=== PATIENT | female | born 1945 | race Caucasian/White ===

== ENCOUNTER 2020-04-26 22:56 | Inpatient (IN) | payer MEDICARE, BC ==
[~2020-04-26] VITALS: Ht 167.6 cm; Wt 191.0 kg
[~2020-04-26 22:56] MED LIST: APIX5TAB3 PO; ASPI-1265 PO; ATOR40TA PO; CARV25TA56 PO; CEPH500C2 PO; DILT-88 PO; FLEC100T2 PO; LISI-644 PO; MAGN250T11 PO; MULT-1085 PO; OMEG300C2 PO; OSC500T PO; POTA10TA19 PO; POTA99TA21; SYN0.0125T PO
[2020-04-26] MEDS ORDERED: normal saline 1000ML IV soln IVB ONE (23:10)
[2020-04-26 23:33] LABS: PARTIAL THROMBOPLASTIN TIME 39 SECONDS (22-32)
[2020-04-26] MEDS ORDERED: ondansetron/PF 4mg/2ml inj IV ONE (23:35)
[2020-04-26 23:42] LABS: ALANINE AMINOTRANSFERASE 58 U/L (12-78); ALBUMIN 2.7 G/DL (3.4-5.0); ALBUMIN/GLOBULIN RATIO 0.7 (1.1-1.5); ALKALINE PHOSPHATASE 89 IU/L (46-116); ANION GAP 7 (8-16); ASPARTATE AMINO TRANSFERASE 31 U/L (10-37); BILIRUBIN,TOTAL 0.5 MG/DL (0.1-1.0); BLOOD UREA NITROGEN 18 MG/DL (7-18); BUN/CREATININE RATIO 15.8 (6.6-38.0); CALCIUM 8.1 MG/DL (8.5-10.1); CHLORIDE 86 MMOL/L (99-107); CREATININE 1.14 MG/DL (0.40-0.90); GLUCOSE 127 MG/DL (70-104); POTASSIUM 4.5 MMOL/L (3.5-5.1); TOTAL CARBON DIOXIDE 25.7 MMOL/L (24-32); TOTAL PROTEIN 6.4 G/DL (6.4-8.2); eGFR 47 ML/MIN
[2020-04-26 23:44] LABS: BASOPHILS % (AUTO) 0.3 % (0-1); EOSINOPHILS # (AUTO) 0.2 X10'3 (0-0.9); EOSINOPHILS % (AUTO) 1.7 % (0-6); HEMATOCRIT 28.6 % (35.0-45.0); HEMOGLOBIN 9.6 g/dl (12.0-16.0); LYMPHOCYTES # (AUTO) 0.8 X10'3 (1.1-4.8); LYMPHOCYTES % (AUTO) 6.9 % (21-51); MEAN CORPUSCULAR HEMOGLOBIN 30.7 PG (27.0-31.0); MEAN CORPUSCULAR HGB CONC 33.6 g/dL (33.0-36.5); MEAN CORPUSCULAR VOLUME 91.4 FL (78-98); MONOCYTES # (AUTO) 1.3 X10'3 (0-0.9); MONOCYTES % (AUTO) 10.5 % (2-12); NEUTROPHILS # (AUTO) 9.7 X10'3 (1.8-7.7); NEUTROPHILS % (AUTO) 80.6 % (42-75); PLATELET COUNT 319 X10'3 (140-440); RED BLOOD COUNT 3.13 X10'6 (4.20-5.60); RED CELL DISTRIBUTION WIDTH 13.4 % (11.5-14.5); WHITE BLOOD COUNT 12.1 X10'3 (4.5-11.0)
--- NOTE | 2020-04-26 23:45 | NUR ---
Ki from [employer] states pacemaker functioning properly. No events to report.
[2020-04-26 23:46] LABS: SODIUM 119 MMOL/L (135-145)
[2020-04-27] MEDS ORDERED: normal saline 1000ml 1,000 ML IV SCH (00:37)
[2020-04-27] MEDS ORDERED: acetaminophen 325mg tablet PO PRN (00:40)
[2020-04-27] MEDS ORDERED: magnesium hydroxide 30ml (MOM) UD suspension PO PRN (00:40)
[2020-04-27] MEDS ORDERED: mag hydrox/Alum hydrox/simeth 30ml oral suspension PO PRN (00:40)
[2020-04-27] MEDS ORDERED: ondansetron/PF 4mg/2ml inj IV PRN (00:40)
[2020-04-27] MEDS: OMEGA-3/DHA/EPA/FISH OIL 1 EACH CAPSULE.DR PO SCH ×2 (01:00→07:26)
--- NOTE | 2020-04-27 02:05 | NUR ---
Patient in room ED 5. I have received report from Cap RN and had the opportunity to ask questions and assume patient care. Patient being brought to O/N from ER and will go in 4009A.
[2020-04-27 02:15] VITALS: BP 137/77
--- NOTE | 2020-04-27 02:22 | NUR ---
Patient up to O/N at 0211. Patient is A&O and in no apparent distress.
[2020-04-27 02:27] LABS: CLARITY,URINE CLEAR (Clear); COLOR,URINE YELLOW (Yellow); GLUCOSE, URINE NEGATIVE (Neg); KETONES,URINE NEGATIVE (Neg); LEUKOCYTE ESTERASE ,URINE TRACE (Neg); NITRITES, URINE NEGATIVE (Neg); OCCULT BLOOD,URINE TRACE-INTACT (Neg); PROTEIN,URINE NEGATIVE (Neg); UROBILINOGEN,URINE 0.2 E.U/dL (0.2-1.0)
[2020-04-27 02:47] LABS: UA COLLECTION TYPE CLN CATCH MIDSTREAM
[2020-04-27 02:49] LABS: BACTERIA,URINE FEW /HPF (Neg); MUCUS STRANDS FEW /LPF (Neg); RBC,URINE 0-2 /HPF (0-2); SQUAMOUS EPITHELIAL CELL,UR FEW /LPF (FEW); WBC,URINE 0-4 /HPF (0-4)
--- NOTE | 2020-04-27 06:03 | NUR ---
Problems reprioritized. Patient report given, questions answered & plan of care reviewed with Verónica HORAN.
[2020-04-27 06:10] VITALS: BP 120/82
--- NOTE | 2020-04-27 06:20 | NUR ---
Patient in room ORTHO 4009. I have received report from Val HORAN and had the opportunity to ask questions and assume patient care.
[2020-04-27] MEDS: atorvastatin 20mg tablet PO SCH (07:27)
[2020-04-27] MEDS: magnesium oxide 400mg tablet PO SCH (07:27)
[2020-04-27] MEDS: carVEDilol 12.5mg tablet PO SCH ×2 (07:28→20:12)
[2020-04-27] MEDS: diltiazem CD 120mg capsule (once-daily) PO SCH (07:28)
[2020-04-27] MEDS: lisinopril 20mg tablet PO SCH (07:29)
[2020-04-27] MEDS: levoTHYROXINE 125mcg tablet PO SCH (07:29)
[2020-04-27] MEDS: aspirin 81mg tab.chew PO SCH (07:29)
[2020-04-27] MEDS: multivitamins, therapeutics tablet PO SCH (07:29)
[2020-04-27] MEDS ORDERED: apixaban 5mg tablet PO SCH (08:00)
[2020-04-27] MEDS: furosemide 20 MG/2 ML vial IV SCH ×2 (08:03→20:12)
[2020-04-27 08:09] LABS: ALBUMIN 2.6 G/DL (3.4-5.0); ANION GAP 6 (8-16); BLOOD UREA NITROGEN 13 MG/DL (7-18); BUN/CREATININE RATIO 13.5 (6.6-38.0); CHLORIDE 90 MMOL/L (99-107); CREATININE 0.96 MG/DL (0.40-0.90); GLUCOSE 103 MG/DL (70-104); POTASSIUM 4.4 MMOL/L (3.5-5.1); SODIUM 121 MMOL/L (135-145); TOTAL CARBON DIOXIDE 25.1 MMOL/L (24-32); eGFR 57 ML/MIN
[2020-04-27 10:00] VITALS: BP 110/76
[2020-04-27] MEDS: pantoprazole 40 MG vial IV SCH ×2 (11:56→20:12)
--- NOTE | 2020-04-27 13:21 | NUR ---
Student documentation: I have reviewed all interventions, assessments performed and documented by Elmo Student Nurse.
[2020-04-27 18:00] VITALS: BP 134/84
--- NOTE | 2020-04-27 18:11 | NUR ---
Patient in room ORTHO 4009. I have received report from Verónica HORAN and had the opportunity to ask questions and assume patient care.
--- NOTE | 2020-04-27 18:55 | NUR ---
Patient report given to Vicky HORAN
[2020-04-27 20:12] VITALS: BP 132/96
[2020-04-27 21:16] LABS: ALANINE AMINOTRANSFERASE 49 U/L (12-78); ALBUMIN 2.7 G/DL (3.4-5.0); ALBUMIN/GLOBULIN RATIO 0.7 (1.1-1.5); ALKALINE PHOSPHATASE 91 IU/L (46-116); ANION GAP 10 (8-16); ASPARTATE AMINO TRANSFERASE 36 U/L (10-37); BILIRUBIN,TOTAL 0.5 MG/DL (0.1-1.0); BLOOD UREA NITROGEN 17 MG/DL (7-18); BUN/CREATININE RATIO 15.7 (6.6-38.0); CHLORIDE 90 MMOL/L (99-107); CREATININE 1.08 MG/DL (0.40-0.90); GLUCOSE 133 MG/DL (70-104); POTASSIUM 4.3 MMOL/L (3.5-5.1); SODIUM 123 MMOL/L (135-145); TOTAL CARBON DIOXIDE 23.1 MMOL/L (24-32); TOTAL PROTEIN 6.7 G/DL (6.4-8.2); eGFR 50 ML/MIN
[2020-04-27 22:00] VITALS: BP 108/81
[2020-04-28 06:00] VITALS: BP 133/93
[2020-04-28 06:02] LABS: BASOPHILS % (AUTO) 0.3 % (0-1); EOSINOPHILS # (AUTO) 0.2 X10'3 (0-0.9); EOSINOPHILS % (AUTO) 1.5 % (0-6); HEMATOCRIT 27.7 % (35.0-45.0); HEMOGLOBIN 9.4 g/dl (12.0-16.0); LYMPHOCYTES # (AUTO) 1.1 X10'3 (1.1-4.8); LYMPHOCYTES % (AUTO) 10.6 % (21-51); MEAN CORPUSCULAR HEMOGLOBIN 30.7 PG (27.0-31.0); MEAN CORPUSCULAR HGB CONC 33.8 g/dL (33.0-36.5); MEAN CORPUSCULAR VOLUME 90.9 FL (78-98); MONOCYTES # (AUTO) 1.1 X10'3 (0-0.9); MONOCYTES % (AUTO) 10.6 % (2-12); NEUTROPHILS # (AUTO) 8.1 X10'3 (1.8-7.7); PLATELET COUNT 319 X10'3 (140-440); RED BLOOD COUNT 3.04 X10'6 (4.20-5.60); RED CELL DISTRIBUTION WIDTH 13.6 % (11.5-14.5); WHITE BLOOD COUNT 10.5 X10'3 (4.5-11.0)
[2020-04-28 06:05] LABS: ALANINE AMINOTRANSFERASE 46 U/L (12-78); ALBUMIN 2.5 G/DL (3.4-5.0); ALBUMIN/GLOBULIN RATIO 0.7 (1.1-1.5); ALKALINE PHOSPHATASE 82 IU/L (46-116); ANION GAP 5 (8-16); ASPARTATE AMINO TRANSFERASE 24 U/L (10-37); BILIRUBIN,TOTAL 0.5 MG/DL (0.1-1.0); BLOOD UREA NITROGEN 15 MG/DL (7-18); BUN/CREATININE RATIO 15.2 (6.6-38.0); CALCIUM 7.7 MG/DL (8.5-10.1); CHLORIDE 92 MMOL/L (99-107); CREATININE 0.99 MG/DL (0.40-0.90); GLUCOSE 100 MG/DL (70-104); POTASSIUM 4.2 MMOL/L (3.5-5.1); SODIUM 124 MMOL/L (135-145); TOTAL CARBON DIOXIDE 27.2 MMOL/L (24-32); TOTAL PROTEIN 6.1 G/DL (6.4-8.2); eGFR 55 ML/MIN
--- NOTE | 2020-04-28 06:20 | NUR ---
Patient in room ORTHO 4009. I have received report from AUNG Perry and had the opportunity to ask questions and assume patient care.
--- NOTE | 2020-04-28 06:42 | NUR ---
Problems reprioritized. Patient report given, questions answered & plan of care reviewed with Ondina RN.
[2020-04-28 08:45] LABS: ALANINE AMINOTRANSFERASE 48 U/L (12-78); ALBUMIN 2.7 G/DL (3.4-5.0); ALBUMIN/GLOBULIN RATIO 0.7 (1.1-1.5); ALKALINE PHOSPHATASE 89 IU/L (46-116); ANION GAP 9 (8-16); ASPARTATE AMINO TRANSFERASE 25 U/L (10-37); BILIRUBIN,TOTAL 0.5 MG/DL (0.1-1.0); BLOOD UREA NITROGEN 15 MG/DL (7-18); BUN/CREATININE RATIO 14.6 (6.6-38.0); CALCIUM 7.9 MG/DL (8.5-10.1); CHLORIDE 90 MMOL/L (99-107); CREATININE 1.03 MG/DL (0.40-0.90); GLUCOSE 119 MG/DL (70-104); POTASSIUM 4.2 MMOL/L (3.5-5.1); SODIUM 124 MMOL/L (135-145); TOTAL CARBON DIOXIDE 25.5 MMOL/L (24-32); TOTAL PROTEIN 6.6 G/DL (6.4-8.2); eGFR 53 ML/MIN
[2020-04-28] MEDS ORDERED: FURO-150 PO (09:16)
[2020-04-28] MEDS: pantoprazole 40 MG vial IV SCH (09:32)
[2020-04-28] MEDS: OMEGA-3/DHA/EPA/FISH OIL 1 EACH CAPSULE.DR PO SCH (09:32)
[2020-04-28] MEDS: multivitamins, therapeutics tablet PO SCH (09:33)
[2020-04-28] MEDS: levoTHYROXINE 125mcg tablet PO SCH (09:33)
[2020-04-28] MEDS: furosemide 20 MG/2 ML vial IV SCH (09:33)
[2020-04-28] MEDS: atorvastatin 20mg tablet PO SCH (09:34)
[2020-04-28] MEDS: carVEDilol 12.5mg tablet PO SCH (09:34)
[2020-04-28] MEDS: lisinopril 20mg tablet PO SCH (09:35)
[2020-04-28] MEDS: diltiazem CD 120mg capsule (once-daily) PO SCH (09:36)
[2020-04-28] MEDS: magnesium oxide 400mg tablet PO SCH (09:36)
[2020-04-28] MEDS: aspirin 81mg tab.chew PO SCH (09:36)
[2020-04-28 10:30] VITALS: BP 118/83
--- NOTE | 2020-04-28 11:40 | NUR ---
DC inst provided to pt & pt's . IV DC'd, tip intact. All belongings sent w/pt. WC to front lobby.
[2020-04-30] MEDS ORDERED: FLEC100T PO (14:02)
[2020-04-30] MEDS ORDERED: MAGN250T29 PO (14:02)
[2020-04-30] MEDS ORDERED: ASPI-611 PO (14:02)
[2020-04-30] MEDS ORDERED: ATOR-2 PO (14:02)
[2020-04-30] MEDS ORDERED: LISI-600 PO (14:02)
[2020-04-30] MEDS ORDERED: DILT-35 PO (14:02)
[2020-04-30] MEDS ORDERED: OMEG1CAP46 PO (14:02)
[2020-04-30] MEDS ORDERED: MULT-1074 PO (14:02)
[2020-04-30] MEDS ORDERED: CARV25TA2 PO (14:02)
[2020-04-30] MEDS ORDERED: APIX5TAB3 PO (14:02)
[2020-04-30] MEDS ORDERED: LEVO125T8 PO (14:02)
[2020-04-30] MEDS ORDERED: FURO20TA4 PO (14:02)
== END 2020-04-28 11:50 | disposition home or self-care (01) | DRG 640 ==
LOC: ER 22:57 → ED HOLD 04-27 00:37 → ORTHO 4S 04-27 02:15
PROVIDERS: ADMIT Internal Medicine; ATTEND Internal Medicine
DX: E87.1 Hypo-osmolality and hyponatremia (principal); I50.33 Acute on chronic diastolic (congestive) heart failure; D62 Acute posthemorrhagic anemia; D68.32 Hemorrhagic disorder due to extrinsic circulating anticoagulants; I11.0 Hypertensive heart disease with heart failure; R55 Syncope and collapse; I25.10 Atherosclerotic heart disease of native coronary artery without angina pectoris; K52.9 Noninfective gastroenteritis and colitis, unspecified; I48.91 Unspecified atrial fibrillation; T45.515A Adverse effect of anticoagulants, initial encounter; I49.5 Sick sinus syndrome; Z20.828 Contact with and (suspected) exposure to other viral communicable diseases; Z79.01 Long term (current) use of anticoagulants; Z79.82 Long term (current) use of aspirin; Z79.899 Other long term (current) drug therapy; Z95.0 Presence of cardiac pacemaker; Z95.5 Presence of coronary angioplasty implant and graft; Y92.89 Other specified places as the place of occurrence of the external cause
CPT/HCPCS: 36415; 71045; 80048; 80053; 80162; 81001; 83880; 85025; 85610; 85730; 87081; 87088; 93005; 99285; C9113; G0378; J1940; J2405; J7030

== ENCOUNTER 2020-10-15 14:49 | Emergency (ER) | payer MEDICARE, BC ==
[~2020-10-15] VITALS: Ht 167.6 cm; Wt 77.6 kg
[~2020-10-15 14:49] MED LIST changes: -ASPI-1265 PO; +ASPI-611 PO; +ATOR-2 PO; -ATOR40TA PO; +CARV25TA2 PO; -CARV25TA56 PO; -CEPH500C2 PO; -DILT-88 PO; +FER325T PO; +FLEC100T PO; -FLEC100T2 PO; +FURO20TA4 PO; +LACT-228 PO; +LEVO125T8 PO; +LISI-600 PO; -LISI-644 PO; -MAGN250T11 PO; +MAGN250T29 PO; +MULT-1074 PO; -MULT-1085 PO; +OMEG1CAP46 PO; -OMEG300C2 PO; -OSC500T PO; -POTA10TA19 PO; -POTA99TA21; -SYN0.0125T PO
[2020-10-15 16:29] LABS: BASOPHILS # (AUTO) 0.1 X10'3 (0-0.2); BASOPHILS % (AUTO) 0.8 % (0-1); EOSINOPHILS # (AUTO) 0.1 X10'3 (0-0.9); EOSINOPHILS % (AUTO) 1.9 % (0-6); HEMATOCRIT 38.5 % (35.0-45.0); HEMOGLOBIN 12.9 g/dl (12.0-16.0); LYMPHOCYTES # (AUTO) 1.1 X10'3 (1.1-4.8); MEAN CORPUSCULAR HEMOGLOBIN 31.7 PG (27.0-31.0); MEAN CORPUSCULAR HGB CONC 33.5 g/dL (33.0-36.5); MEAN CORPUSCULAR VOLUME 94.5 FL (78-98); MEAN PLATELET VOLUME 8.2 FL (7.4-10.4); MONOCYTES # (AUTO) 0.5 X10'3 (0-0.9); MONOCYTES % (AUTO) 7.2 % (2-12); NEUTROPHILS # (AUTO) 4.7 X10'3 (1.8-7.7); NEUTROPHILS % (AUTO) 73.1 % (42-75); PLATELET COUNT 195 X10'3 (140-440); RED BLOOD COUNT 4.07 X10'6 (4.20-5.60); RED CELL DISTRIBUTION WIDTH 15.1 % (11.5-14.5); WHITE BLOOD COUNT 6.5 X10'3 (4.5-11.0)
[2020-10-15 16:39] LABS: PARTIAL THROMBOPLASTIN TIME 32 SECONDS (22-32)
[2020-10-15 16:44] LABS: ALANINE AMINOTRANSFERASE 40 U/L (12-78); ALBUMIN/GLOBULIN RATIO 1.1 (1.1-1.5); ALKALINE PHOSPHATASE 63 IU/L (46-116); ANION GAP 6 (8-16); ASPARTATE AMINO TRANSFERASE 32 U/L (10-37); BILIRUBIN,TOTAL 0.6 MG/DL (0.1-1.0); BLOOD UREA NITROGEN 17 MG/DL (7-18); BUN/CREATININE RATIO 17.9 (6.6-38.0); CALCIUM 8.3 MG/DL (8.5-10.1); CHLORIDE 99 MMOL/L (99-107); CREATININE 0.95 MG/DL (0.40-0.90); GLUCOSE 99 MG/DL (70-104); POTASSIUM 3.8 MMOL/L (3.5-5.1); SODIUM 135 MMOL/L (135-145); TOTAL CARBON DIOXIDE 29.6 MMOL/L (24-32); TOTAL PROTEIN 7.7 G/DL (6.4-8.2); eGFR 58 ML/MIN
[2020-10-15 16:52] LABS: MAGNESIUM 2.3 MG/DL (1.5-2.4)
[2020-10-15 17:22] VITALS: BP 183/94
== END 2020-10-15 17:24 | disposition home or self-care (01) ==
LOC: ER 14:50
DX: I11.0 Hypertensive heart disease with heart failure (principal); I25.10 Atherosclerotic heart disease of native coronary artery without angina pectoris; I50.9 Heart failure, unspecified; Z95.0 Presence of cardiac pacemaker; Z95.5 Presence of coronary angioplasty implant and graft; Z79.82 Long term (current) use of aspirin; Z79.899 Other long term (current) drug therapy
CPT/HCPCS: 36415; 71045; 80053; 83735; 83880; 84484; 85025; 85610; 85730; 93005; 99285

== ENCOUNTER 2024-04-15 08:16 | Emergency (ER) | payer MEDICARE, BC ==
[~2024-04-15] VITALS: Ht 167.6 cm; Wt 62.0 kg
[~2024-04-15 08:16] MED LIST changes: -LISI-600 PO; +LISI20TA28 PO
[2024-04-15 08:40] LABS: BASOPHILS % (AUTO) 0.6 % (0-1); EOSINOPHILS # (AUTO) 0.2 X10'3 (0-0.9); EOSINOPHILS % (AUTO) 2.8 % (0-6); HEMATOCRIT 38.8 % (35.0-45.0); LYMPHOCYTES # (AUTO) 0.8 X10'3 (1.1-4.8); LYMPHOCYTES % (AUTO) 12.3 % (21-51); MEAN CORPUSCULAR HEMOGLOBIN 32.1 PG (27.0-31.0); MEAN CORPUSCULAR HGB CONC 33.6 g/dL (33.0-36.5); MEAN CORPUSCULAR VOLUME 95.5 FL (78-98); MEAN PLATELET VOLUME 7.8 FL (7.4-10.4); MONOCYTES # (AUTO) 0.6 X10'3 (0-0.9); MONOCYTES % (AUTO) 9.2 % (2-12); NEUTROPHILS # (AUTO) 4.8 X10'3 (1.8-7.7); NEUTROPHILS % (AUTO) 75.1 % (42-75); PLATELET COUNT 201 X10'3 (140-440); RED BLOOD COUNT 4.06 X10'6 (4.20-5.60); RED CELL DISTRIBUTION WIDTH 14.4 % (11.5-14.5); WHITE BLOOD COUNT 6.5 X10'3 (4.5-11.0)
[2024-04-15 08:50] LABS: ALANINE AMINOTRANSFERASE 39 U/L (12-78); ALBUMIN 3.7 G/DL (3.4-5.0); ALBUMIN/GLOBULIN RATIO 0.9 (1.1-1.5); ALKALINE PHOSPHATASE 55 IU/L (46-116); ANION GAP 5 (8-16); ASPARTATE AMINO TRANSFERASE 34 U/L (10-37); BILIRUBIN,TOTAL 0.8 MG/DL (0.1-1.0); BLOOD UREA NITROGEN 18 MG/DL (7-18); BUN/CREATININE RATIO 17.5 (10.0-20.0); CALCIUM 8.9 MG/DL (8.5-10.1); CHLORIDE 93 MMOL/L (99-107); CREATININE 1.03 MG/DL (0.40-0.90); GLUCOSE 112 MG/DL (70-104); POTASSIUM 3.6 MMOL/L (3.5-5.1); SODIUM 130 MMOL/L (135-145); TOTAL CARBON DIOXIDE 32.2 MMOL/L (24-32); TOTAL PROTEIN 7.8 G/DL (6.4-8.2); eCRCL 43 ML/MIN; eGFR 52 ML/MIN
[2024-04-15 08:56] LABS: PRO BRAIN NATRIURETIC PEPTIDE 458 PG/ML (0-450)
[2024-04-15] MEDS: potassium Cl 20 mEq SR tablet PO STA (10:34)
[2024-04-15 11:06] VITALS: BP 128/75; PULSE 78; RESP 14; TEMP 98.5; O2SAT 98
== END 2024-04-15 11:10 | disposition home or self-care (01) ==
LOC: ER 08:17
DX: R00.2 Palpitations (principal); E87.6 Hypokalemia; I11.0 Hypertensive heart disease with heart failure; I50.9 Heart failure, unspecified; Z79.899 Other long term (current) drug therapy; Z79.82 Long term (current) use of aspirin; Z79.1 Long term (current) use of non-steroidal anti-inflammatories (NSAID)
CPT/HCPCS: 36415; 71045; 80053; 83880; 84484; 85025; 93005; 99285